=== PATIENT | female | born 1995 | race Caucasian/White ===

== ENCOUNTER 2016-06-21 20:14 | Emergency (ER) | payer BC ==
[2016-06-21 20:30] VITALS: BP 116/65
[2016-06-21] MEDS ORDERED: Ketorolac INJ* 60 MG/2 ML VIAL IM ONE (21:30)
--- NOTE | 2016-06-21 21:30 | UC ---
Headache HPI - HPI Summary HPI Summary: gets headaches every now and then now has a head ache that was not relieved but Excedrin or rest---had a shot one time when she had a head ache with good effect - History Of Current Complaint Chief Complaint: [facility] Stated Complaint: HEADACHE Time Seen by Provider: 06/21/16 21:20 Hx Obtained From: Patient Hx Last Menstrual Period: 06/12/16 ?: No Onset/Duration: Sudden Onset, Lasting Days - 1, Still Present Onset Of Symptoms: Sudden Pain Intensity: 7 Pain Scale Used: 0-10 Numeric Timing: Constant Character: Throbbing, Pressure, Typical Headache Location of Headache: Frontal Aggravating Factor: Nothing Allevating Factors: Nothing Associated Signs And Symptoms: Positive: Negative - Allergies/Home Medications Allergies/Adverse Reactions: Allergies Allergy/AdvReac Type Severity Reaction Status Date / Time No Known Allergies Allergy Verified 06/21/16 20:30 Home Medications: Home Medications [id number] [Excedrin Migraine] 2 tab PO ONCE PRN 06/21/16 [ History Confirmed 06/21/16] PMH/Surg Hx/FS Hx/Imm Hx Previously Healthy: Yes Endocrine History Of: Denies: Thyroid Disease Cardiovascular History Of: Denies: Cardiac Disorders, Hypertension Respiratory History Of: Denies: Asthma - Surgical History Surgical History: None - Family History Known Family History: Positive: None Negative: Cardiac Disease, Hypertension, Diabetes - Social History Occupation: Employed Full-time - [employer] Lives: With Family Alcohol Use: Rare Substance Use Type: None Smoking Status (MU): Never Smoked Tobacco - Immunization History Most Recent Influenza Vaccination: none Vaccination Up to Date: Yes Review of Systems Constitutional: Negative Skin: Negative Eyes: Negative ENT: Negative Respiratory: Negative Cardiovascular: Negative Gastrointestinal: Negative Genitourinary: Negative Motor: Negative Neurovascular: Negative Musculoskeletal: Negative Neurological: Headache Psychological: Negative All Other Systems Reviewed And Are Negative: Yes Physical Exam Triage Information Reviewed: Yes Appearance: Well-Appearing, Well-Nourished, Pain Distress - mild Vital Signs: Initial Vital Signs Temp 98 F 06/21/16 20:24 Pulse 84 06/21/16 20:24 Resp 16 06/21/16 20:24 BP 116/65 06/21/16 20:24 Pulse Ox 100 06/21/16 20:24 Eye Exam: Normal Eyes: Positive: Conjunctiva Clear, Other: - perrla, eomi, ENT Exam: Normal ENT: Positive: Normal ENT inspection, Hearing grossly normal, Pharynx normal, TMs normal. Negative: Nasal congestion, Nasal drainage, Tonsillar swelling, Tonsillar exudate, Trismus, Muffled/hoarse voice Dental Exam: Normal Neck exam: Normal Neck: Positive: Supple, Nontender, No Lymphadenopathy Respiratory Exam: Normal Respiratory: Positive: Chest non-tender, Lungs clear, Normal breath sounds, No respiratory distress, No accessory muscle use Cardiovascular Exam: Normal Cardiovascular: Positive: RRR, No Murmur, Pulses Normal, Brisk Capillary Refill Musculoskeletal Exam: Normal Musculoskeletal: Positive: Strength Intact, ROM Intact, No Edema Neurological Exam: Normal Neurological: Positive: Alert, Muscle Tone Normal, Other: - able to drive herself her today without difficulty Psychological Exam: Normal Skin Exam: Normal Headache Course/Dx - Course Course Of Treatment: toradol, rest increase flids, follow with pcp re-check prn - Differential Dx/Diagnosis Differential Diagnosis/HQI/PQRI: Migraine, Sinus Headache, Temporal Arteritis, Tension Headache Provider Diagnoses: Tension Headache Discharge - Discharge Plan Condition: Stable Disposition: HOME Patient Education Materials: Acute Headache (ED) Forms: *Work Release Referrals: TEDDY Jones [Primary Care Provider] - If Needed
[2016-06-21] MEDS ORDERED: Ketorolac INJ* 60 MG/2 ML VIAL ONE (21:43)
== END 2016-06-21 21:59 | disposition home or self-care (01) ==
LOC: UCCORT 20:14
DX: G44.209 Tension-type headache, unspecified, not intractable (principal)
CPT/HCPCS: 96372; 99211; G0463; J1885